=== PATIENT | male | born 1940 | race Caucasian/White ===

== ENCOUNTER 2018-08-14 06:03 | Inpatient (IN) | payer MEDICARE, OTHER ==
[~2018-08-14] VITALS: Ht 172.7 cm; Wt 85.0 kg
[2018-08-14] MEDS ORDERED: ASPI81CH PO (06:26)
[2018-08-14] MEDS ORDERED: CARV3.125 PO (06:26)
[2018-08-14] MEDS ORDERED: FINA5 PO (06:26)
[2018-08-14] MEDS ORDERED: FISH OIL DR 1,1 EACH PO ×2 (06:27)
[2018-08-14] MEDS ORDERED: MULTI VITAMIN1 EACH PO (06:27)
[2018-08-14] MEDS ORDERED: PHENO15 PO (06:28)
[2018-08-14 06:32] LABS: BASOPHILS ABSOLUTE AUTO 0.01 K/mm3 (0.00-0.23); BASOPHILS PERCENT AUTO 0 % (0-2); EOSINOPHILS ABSOLUTE AUTO 0.08 K/mm3 (0.00-0.68); EOSINOPHILS PERCENT AUTO 2 % (0-6); Hematocrit 42.8 % (37.0-53.0); Hemoglobin 14.5 g/dL (13.5-17.5); IMMATURE GRAN ABSOLUTE AUTO 0.01 K/mm3 (0.00-0.10); IMMATURE GRAN PERCENT AUTO 0 % (0-1); LYMPHOCYTES ABSOLUTE AUTO 1.66 K/mm3 (0.84-5.20); LYMPHOCYTES PERCENT AUTO 41 % (21-46); MONOCYTES ABSOLUTE AUTO 0.43 K/mm3 (0.16-1.47); MONOCYTES PERCENT AUTO 11 % (4-13); Mean Corpuscular HGB 32.9 pg (26.0-34.0); Mean Corpuscular HGB Conc 33.9 g/dL (31.5-36.5); Mean Corpuscular Volume 97 fL (80-100); Mean Platelet Volume 10.1 fL (9.1-12.4); NEUTROPHILS PERCENT AUTO 47 % (41-73); Platelet Count 164 K/mm3 (150-400); RDW Coefficient Variation 12.6 % (11.7-14.2); RDW Standard Deviation 44.6 fL (35.1-46.3); Red Blood Cell Count 4.41 M/mm3 (4.30-5.90); White Blood Cell Count 4.09 K/mm3 (4.00-11.30)
[2018-08-14 06:49] LABS: Alanine Aminotransfer (ALT/SGP 28 U/L (12-78); Albumin, Blood 3.9 g/dL (3.4-5.0); Albumin/Globulin Ratio 1.2 (0.8-1.8); Alk Phos 64 U/L (50-136); Anion Gap 6 mmol/L (6-16); Aspartate Aminotrans (AST/SGOT 26 U/L (12-37); Bilirubin, Total 0.3 mg/dL (0.1-1.0); Blood Urea Nitrogen 16 mg/dL (8-24); Bun/Creatinine Ratio 19.9 (12.0-20.0); CO2, Blood 27 mmol/L (21-32); Calcium, Blood 8.9 mg/dL (8.5-10.1); Chloride, Blood 108 mmol/L (98-108); Globulin, Blood 3.3 g/dL (2.2-4.0); Glomerular Filtration Rate >60 (60-); Glucose, Blood 93 mg/dL (70-99); Magnesium, Blood 2.2 mg/dL (1.6-2.4); Potassium, Blood 4.2 mmol/L (3.5-5.5); Sodium, Blood 141 mmol/L (136-145); Total Protein, Blood 7.2 g/dL (6.4-8.2)
[2018-08-14 09:27] LABS: CHOL/HDL RATIO 3.1; Cholesterol 239 mg/dL (50-200); HDL Cholesterol 76 mg/dL (>39); LDL/HDL RATIO 1.9; Low Density Lipoprotein Chol 145 mg/dL (0-110); Triglycerides 91 mg/dL (30-160); Very Low Density Lipoprot Chol 18 mg/dL (6-32)
--- NOTE | 2018-08-14 10:15 | NUR ---
0900 PT ADMITTED TO ICU-10. NO CURRENT DISTRESS OR CHEST PAIN NOTED. AMIO GTT IS AT 1 MG/33.3ML. PT IS ON RA AND SATS 97+. IS IN ROOM. CHIEF BANK EXAMINER STAFF IN TO PREP FOR [facility]. NEW IV STARTED AND RW IV D/C PER CATH STAFF.
--- NOTE | 2018-08-14 15:49 | NUR ---
1030 PT RETURNED FROM [facility] AND WITH TR BAND ON AND REPORTED TO BE AT 11 ML VS NOTED AND WILL FOLLOW. AMINO GTT AT 1MG AND WILL DECREASE APPROPRIATE TIME.
--- NOTE | 2018-08-14 15:55 | NUR ---
AT 1330 ATTEMPTED TO DEFLATE TR BAND PER SHRUTI SWANSON. SITE SL OOZED AND REINFALATED. WILL ATTEMPT LATER.
--- NOTE | 2018-08-14 15:57 | NUR ---
1430 DEFLATED TR SITE W/O OOZING. WILL MONITOR AND PLACE CLEAR DSG GAYE. PT CONT ON AMIO GTT DEC. TO 0.5MG 16.6ML AND PT REMAINS IN NSR OR SB W/O ECTOPY.
--- NOTE | 2018-08-14 17:50 | NUR ---
PT ON AMIO.GTT AT O.5MG AND REMAINS PAIN FREE. PT IS ALSO IN SB/SR W/O ECTOPY. PT HAS VOIDED AND HAD A BM THIS SHIFT. LATE TROPONIN WAS DRAWN AND WILL LOOK FOR RESULTS. PT HAS BEEN IN THE ROOM AND VISITING.
--- NOTE | 2018-08-14 18:48 | NUR ---
CORRECTION TO EARLIER NOTE AFTER MEASURING UT PT IS IN SR /SB WITH 1ST DEGREE AV BLOCK AND THIS WAS PRECENT ON ADMIT TO ED THIS AM. PT REMAINS PAIN FREE AND TR BAND IS STABLE.
--- NOTE | 2018-08-14 22:11 | NUR ---
START OF SHIFT: REPORT FROM PORFIRIO SWANSON. PT A+O X4, VSS, LS CLEAR ON RA. RIGHT RADIAL ACCESS SITE ASSESSED AND WNL. ARM BOARD REMAINING ON RIGHT HAND/WRIST. FAMILY AT BEDSIDE. PT WITH NO C/O CP OR ANY OTHER DISCOMFORTS. AMIODARONE gtt AT 0.5 mg/min. INFUSING INTO LEFT AC. AT 1999 PT C/O LEFT AC IV DISCOMFORT. INFILTRATION NOTED APPRX 1"x2" INFILTRATE NOTED. IV DISCONTINUED WITH gtt MOVED TO 20g IV ON R ARM. MOIST HEAT PACK APPLIED TO INFILTRATE AREA. NEW IV START 20g TO LEFT LOWER FA. PT THEN UP FOR BATHROOM PRIV. C/ MINIMAL ASSIST AND TOLERATED WELL. PT'S MALAIKA, (RETIRED RN) HELPS PT INTO AND OUT OF BED KEEPING RIGHT ARM IMMOBILIZED. WILL CONTINUE TO MONITOR
--- NOTE | 2018-08-14 22:41 | NUR ---
DR. ORTIZ NOTIFIED: PRIOR TO 2100 FERMENTATION MANAGER, PT AND SPOUSE REQUESTED FOR PT TO RECEIVE HIS PHENOBARBITAL AT BEDTIME. DR. ORTIZ CALLED FOR ORDERS, HOWEVER AFTER RESEARCHING INTERACTIONS OF PHENOBARB/AMIODARONE gtt THE MEDICATION WAS NOT ORDERED BUT WILL BE ADDRESSED TOMORROW. PT AND SPOUSE WITH VERBAL UNDERSTANDING.
--- NOTE | 2018-08-15 05:21 | NUR ---
AMIODARONE gtt: PER DR. GARCIA NOTE STATING, "CONTINUE AMIODARONE". WILL ORDER NEW BAG AND CONTINUE AT 0.5mg WITH CONSIDERING PT CONTINUING FREQUENT PVC'S AND SHORT RUNS OF V-TACH. DISCUSSED WITH NINOSKA MEJIA RN AND WILL PASS ON TO ONCOMING RN.
--- NOTE | 2018-08-15 05:27 | NUR ---
UPDATE: PT A+O X4 EACH TIME RN TO BEDSIDE. VSS. PT HAS DENIED PAIN T/O NOC. R RADIAL SITE REMAINED WNL. PT UP TO BATHROOM PRN WITH NO COMPLAINTS. PT SPOUSE REMAINED IN ROOM.
--- NOTE | 2018-08-15 08:10 | NUR ---
ASSUMED CARE AT 0700 AFTER REPORT FROM REBECCA Gonzales RN. AMIODARONE AT 0.5 MG/HR. ASSISTED OOB TO CHAIR, DENIED CHEST PAIN. WHILE BRUSHING HIS TEETH, HE FELT FAINT. SAID HE FELT HAS IF HE NEEDED TO HAVE A BM. ASSISTED BACK TO BE. HR BRADIED DOWN TO 43 BPM. BP 73/49. CALL TO DR. GARCIA. ORDERS TO STOP AMIODARONE AND EKG. PATIENT C/O CHEST PAIN. ASPIRIN 325 PO GIVEN. FLUID CHALLENGE STARTED. BP RECOVERED. NS TO 125 ML/HR. WILL UPDATE RADHA
--- NOTE | 2018-08-15 08:42 | NUR ---
VISIT DR. Jorge CARVALHO IN.
--- NOTE | 2018-08-15 08:53 | NUR ---
MD VISIT DR. GARCIA IN. DECISION TO TRANSFER TO [facility] MADE WITH THE FAMILY FOR AN EP STUDY. ECHO BEING COMPLETED NOW.
--- NOTE | 2018-08-15 09:29 | NUR ---
Echocardiogram completed.
--- NOTE | 2018-08-15 10:54 | NUR ---
0930 RECIEVED REPORT AND ASSUMED CARE FROM SHRUTI SWANSON.
--- NOTE | 2018-08-15 12:19 | NUR ---
PT REQUESTING TO GET UP FOR POSS. BM. IN QUESTIONING PT HE REALLY NEEDED TO VOID AND JUST SET UP TO SIDE OF BED AND VOIDED W/O INCIDENT OR ARRHYTHMIA CHANGES. PT REMAINS IN SR WITH 1 DEGREE AND OCC PVC'S NOTED. PT HAD A 6 BEAT RUN OF SLOW VT AND SELF RESOLVING AT APPROX 1005 THIS AM. HE EXPERIENCED NO PAIN OR DISTRESS WITH EITHER EPISODE. PT IS SETTING UP AND HAS BEEN EATING AND THUS WILL HOLD IVF DUE TO NEW INFILTRATE IN RAC, HOT PACKS TO BE APPLIED.
--- NOTE | 2018-08-15 16:52 | NUR ---
Met with Mr. Shaffer, his , son and DIL. All were appreciaitve of prayer and spiritual direction. This family is active in their Church [employer]. Provided emotional affirmation, gentle spiritual direction and prayer. Pt and family awaiting POC. I will remain available.
[2018-08-15 16:57] LABS: Anion Gap 6 mmol/L (6-16); Blood Urea Nitrogen 14 mg/dL (8-24); CO2, Blood 25 mmol/L (21-32); Chloride, Blood 107 mmol/L (98-108); Creatinine, Blood 0.93 mg/dL (0.60-1.20); Glomerular Filtration Rate >60 (60-); Glucose, Blood 96 mg/dL (70-99); Magnesium, Blood 2.3 mg/dL (1.6-2.4); Potassium, Blood 4.1 mmol/L (3.5-5.5); Sodium, Blood 138 mmol/L (136-145)
--- NOTE | 2018-08-15 19:15 | NUR ---
ASSUMED CARE PT SITTING UPRIGHT IN BED VISITING WITH . PT CURRENTLY DENIES ANY COMPLAINTS OF PAIN AND HAS QUESTIONS ABOUT PENDING EP STUDY AND [facility] REP VISIT IN AM. QUESTIONS ANSWERED, HANDOUTS, ZOLL WEBSITE INFORMAITON GIVEN AND ENCOURAGED TO WRITE DOWN ANY THAT THE [facility] REP COULD ANSWER. RT RADIAL ACCESS SITE DRESSING HAS A SMALL AMOUNT OF DRIED BLOOD BUT IS SOFT AND NON TENDER. BP LOW BUT WITH ADEQUATE MAP, ECG SHOWS SR WITH FIRST DEGREE AVB WITH OCCASIONAL TRIGEMINY BUT PT DOES NOT NOTICE PVC BEATS. O2 SATS 94% ON RA. PLAN TO ENCOURAGE SLEEP, PT'S MELISSA PLANS TO SPEND THE NIGHT.
--- NOTE | 2018-08-16 05:50 | NUR ---
SHIFT SUMMARY NO ACUTE EVENTS OVERNIGHT, PT WAS ABLE TO SLEEP FOR MAJORITY OF SHIFT. ECG OVERNIGHT SHOWED SR WITH FIRST DEGREE AVB AND FREQUENT PVC'S ALONG WITH TRIGEMINY OFF AND ON. PT HAD DENIED CP OR SOB WITH TRIGEMINY BUT DOES REPORT FEELING WHAT HE DESCRIBES "GAS." BP OCCASIONALLY LOW WITH SLEEP, O2 SATS MID/LOW 90'S ON RA. PT'S MALAIKA SPENT THE NIGHT IN ROOM.
--- NOTE | 2018-08-16 08:05 | NUR ---
PT AWAKE IN BED, ALERT AND ORIENTED WITHOUT COMPLAINTS OF PAIN. PT SBA TO TOILET; UNABLE TO HAVE BM. PT IN SINUS RHYTHM W ECTOPY; MULTIPLE PAC'S, PVC'S, SOME BIGEMINY NOTED WELL. BP LOW SIDE OF NORMAL. PT TO BE FITTED W [facility] TODAY, APPT TO BE MADE FOR OP VS TRANSFER FOR EP STUDY IN [place].
--- NOTE | 2018-08-16 09:46 | NUR ---
[facility] REP REN BRANHAM IN TO SEE PT. UPDATED INFO FAXED TO [facility]. DR GARCIA IN TO SEE PT, WELL DR CARVALHO. UPDATED INFO FAXED TO DR CRUZ OFFICE FOR OP APPT TO EVALUATE FOR POTENTIAL EP STUDY. PLAN REMAINS TO DC HOME AFTER [facility] FITTING AND OP APPT MADE.
[2018-08-16] MEDS ORDERED: Pacerone400 MG PO (13:24)
[2018-08-16] MEDS ORDERED: ACET325 PO (13:24)
[2018-08-16] MEDS ORDERED: ATOR20 PO (13:25)
[2018-08-16] MEDS ORDERED: CLOP75 PO (13:25)
[2018-08-16] MEDS ORDERED: LEVE500 PO (13:26)
--- NOTE | 2018-08-16 15:09 | NUR ---
APPOINTMENT FOR [facility] MADE FOR THIS WEDNESDAY. PT APPROVED FOR [facility]; WILL BE FITTING AT 1630 TODAY. DISCHARGE ORDERS TO BE DC'D HOME GIVEN. ORAL AND WRITTEN DC INFO GIVEN TO PT AND PT'S W CLEAR UNDERSTANDING. PT TO HOLD COREG FOR SBP LESS THAN 100. BP SOMEWHAT HYPOTENSIVE. PT DINIES FEELING DIZZI BUT FELT "SWEATY" SITTING UP IN CHAIR. 500CC BOLUS TO BE GIVEN. WILL INFORM DR CARVALHO IF PT SYMPTOMATIC OR IF HYPOTENSION PERSIST AFTER BOLUS. IF PT ASYMPTOMATIC AND BP WNL, PT MAY BE DC'D HOME AFTER [facility] PLACED.
--- NOTE | 2018-08-16 16:00 | NUR ---
BOLUS COMPLETED. PT UP IN CHAIR, DENIES DIZZINESS, AND ALL OTHER COMPLAINTS. BP 93/55 WITH A MAP OF 67. PT EDUCATED/INSTRUCTED TO HOLD COREG FOR SBP <100. PT VERBALIZES UNDERSTANDING AND HAS THE MEANS TO CHECK PRESSURS AT HOME.
--- NOTE | 2018-08-16 16:46 | NUR ---
PT BEING FITTED [facility]. FAMILY AT BEDSIDE.
--- NOTE | 2018-08-16 17:56 | NUR ---
PT DC'D HOME AT 1755 VIA W/C; DRIVING PT HOME. [facility] ON; PT AND PT'S FAMILY STATE THEY FEEL COMFORTABLE AND GOOD ABOUT THE TRAINING GIVEN.
== END 2018-08-16 18:00 | disposition home or self-care (01) | DRG 281 ==
LOC: ER 06:03 → ICUW 07:23
PROVIDERS: Emergency Medicine; Internal Medicine Interventional Cardiology; ADMIT Internal Medicine
PROC: B2111ZZ Fluoroscopy of Multiple Coronary Arteries using Low Osmolar Contrast (ICD-10-PCS; principal; 2018-08-14)
DX: I47.2 Ventricular tachycardia (principal); I21.A1 Myocardial infarction type 2; I42.9 Cardiomyopathy, unspecified; I25.10 Atherosclerotic heart disease of native coronary artery without angina pectoris; E86.9 Volume depletion, unspecified; I95.9 Hypotension, unspecified; G40.309 Generalized idiopathic epilepsy and epileptic syndromes, not intractable, without status epilepticus; Z79.02 Long term (current) use of antithrombotics/antiplatelets
CPT/HCPCS: 36415; 71045; 80048; 80053; 80061; 83735; 84484; 85025; 93005; 93010; 93306; 93458; 96365; 96366; 96372; 99152; 99285-25; C1769; C1894; G0378; J0282; J1644; J1953; J2250; J3010; J7030; J7060; Q9967

== ENCOUNTER 2019-03-31 00:59 | Emergency (ER) | payer MEDICARE, OTHER ==
[~2019-03-31] VITALS: Ht 172.7 cm; Wt 81.7 kg
[~2019-03-31 00:59] MED LIST: ACET325 PO; ASPI81CH PO; ATOR20 PO; CARV3.125 PO; CLOP75 PO; FINA5 PO; FISH OIL DR 1,1 EACH PO; LEVE500 PO; MULTI VITAMIN1 EACH PO; PHENO15 PO; Pacerone400 MG PO
[2019-03-31] MEDS ORDERED: LISI5 PO (01:45)
[2019-03-31] MEDS ORDERED: SPIR25 PO (01:45)
[2019-03-31] MEDS ORDERED: METO25ER PO (01:46)
[2019-03-31 01:49] LABS: BASOPHILS ABSOLUTE AUTO 0.02 K/mm3 (0.00-0.23); BASOPHILS PERCENT AUTO 0 % (0-2); EOSINOPHILS ABSOLUTE AUTO 0.01 K/mm3 (0.00-0.68); EOSINOPHILS PERCENT AUTO 0 % (0-6); Hematocrit 41.8 % (37.0-53.0); Hemoglobin 13.7 g/dL (13.5-17.5); IMMATURE GRAN ABSOLUTE AUTO 0.04 K/mm3 (0.00-0.10); IMMATURE GRAN PERCENT AUTO 1 % (0-1); LYMPHOCYTES ABSOLUTE AUTO 0.97 K/mm3 (0.84-5.20); LYMPHOCYTES PERCENT AUTO 11 % (21-46); MONOCYTES ABSOLUTE AUTO 0.29 K/mm3 (0.16-1.47); MONOCYTES PERCENT AUTO 3 % (4-13); Mean Corpuscular HGB 31.8 pg (26.0-34.0); Mean Corpuscular HGB Conc 32.8 g/dL (31.5-36.5); Mean Corpuscular Volume 97 fL (80-100); Mean Platelet Volume 9.7 fL (9.1-12.4); NEUTROPHILS PERCENT AUTO 85 % (41-73); Platelet Count 151 K/mm3 (150-400); RDW Coefficient Variation 12.2 % (11.7-14.2); Red Blood Cell Count 4.31 M/mm3 (4.30-5.90); White Blood Cell Count 8.63 K/mm3 (4.00-11.30)
[2019-03-31 01:59] LABS: Alanine Aminotransfer (ALT/SGP 67 U/L (12-78); Albumin, Blood 4.2 g/dL (3.4-5.0); Albumin/Globulin Ratio 1.3 (0.8-1.8); Alk Phos 67 U/L (50-136); Anion Gap 11 mmol/L (6-16); Aspartate Aminotrans (AST/SGOT 43 U/L (12-37); Bilirubin, Total 0.8 mg/dL (0.1-1.0); Blood Urea Nitrogen 16 mg/dL (8-24); Bun/Creatinine Ratio 18.8 (12.0-20.0); CO2, Blood 21 mmol/L (21-32); Calcium, Blood 9.3 mg/dL (8.5-10.1); Chloride, Blood 103 mmol/L (98-108); Creatinine, Blood 0.85 mg/dL (0.60-1.20); Globulin, Blood 3.2 g/dL (2.2-4.0); Glomerular Filtration Rate >60 (60-); Glucose, Blood 92 mg/dL (70-99); Potassium, Blood 4.4 mmol/L (3.5-5.5); Sodium, Blood 135 mmol/L (136-145); Total Protein, Blood 7.4 g/dL (6.4-8.2)
[2019-03-31 02:17] LABS: Troponin I <0.015 ng/mL (0.000-0.040)
[2019-03-31] MEDS ORDERED: MOTION RELIEF25 MG PO (02:57)
[2019-03-31] MEDS ORDERED: ONDA4ODT MM (02:57)
== END 2019-03-31 05:31 | disposition home or self-care (01) ==
LOC: ER 00:59
PROVIDERS: Emergency Medicine
DX: H81.10 Benign paroxysmal vertigo, unspecified ear (principal); I11.9 Hypertensive heart disease without heart failure; I43 Cardiomyopathy in diseases classified elsewhere; N40.0 Benign prostatic hyperplasia without lower urinary tract symptoms; R00.0 Tachycardia, unspecified; Z79.82 Long term (current) use of aspirin; Z79.899 Other long term (current) drug therapy; Z95.0 Presence of cardiac pacemaker
CPT/HCPCS: 36415; 70450; 80053; 83735; 84484; 85025; 93005; 93010; 96374; 96375; 99284-25; A9270-GY; J2405; J2550

== ENCOUNTER → 2020-08-12 | Outpatient (CLI) | payer MEDICARE, OTHER ==
[~2020-08-12] MED LIST changes: +LISI5 PO; +METO25ER PO; +MOTION RELIEF25 MG PO; +ONDA4ODT MM; +SPIR25 PO
== END | disposition home or self-care (01) ==
LOC: LAB 14:49 → LAB SHORT 14:49
DX: B35.1 Tinea unguium (principal)
CPT/HCPCS: 88305; 88312

== ENCOUNTER 2022-08-22 16:59 | Emergency (ER) | payer MEDICARE, OTHER ==
[~2022-08-22] VITALS: Ht 172.7 cm; Wt 90.7 kg
[2022-08-22 17:37] VITALS: BP 115/78
[2022-08-22] MEDS ORDERED: Tessalon200 MG PO (19:27)
== END 2022-08-22 19:35 | disposition home or self-care (01) ==
LOC: ER 16:59
DX: U07.1 COVID-19 (principal); Z88.8 Allergy status to other drugs, medicaments and biological substances; Z79.899 Other long term (current) drug therapy; Z79.82 Long term (current) use of aspirin; I10 Essential (primary) hypertension
CPT/HCPCS: 71046; 99283-25; A9270

== ENCOUNTER → 2022-09-30 | Outpatient (CLI) | payer MEDICARE, OTHER ==
[~2022-09-30] MED LIST changes: +Tessalon200 MG PO
== END ==
LOC: PLD 14:59 → LAB SHORT 14:59 → LAB 14:59
DX: C44.311 Basal cell carcinoma of skin of nose (principal)
CPT/HCPCS: 88305

== ENCOUNTER → 2023-06-01 | Outpatient (CLI) | payer MEDICARE, OTHER | END | disposition home or self-care (01) | LOC: LAB SHORT 14:51 → LAB 14:51 | DX: L01.02 Bockhart's impetigo (principal); B88.0 Other acariasis; L98.499 Non-pressure chronic ulcer of skin of other sites with unspecified severity | CPT/HCPCS: 88305; 88312 ==